=== PATIENT | male | born 2000 | race Caucasian/White ===

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

== ENCOUNTER 2022-03-23 09:14 | Emergency (ER) | payer OTHER, SELFPAY ==
[2022-03-23 09:26] VITALS: BP 130/86; PULSE 75; RESP 16; TEMP 36.8; O2SAT 100
--- NOTE | 2022-03-23 09:31 | ED.URI ---
HPI - URI/Sore Throat General Chief Complaint: Upper Respiratory Infection Stated Complaint: Sore Throat Time Seen by Provider: 03/23/22 09:31 History of Present Illness HPI Narrative: 22-year-old male presented for complaint of sore throat, onset last night into this morning. He states his mother noticed white patches in his throat. He endorses mild sinus congestion and drainage. Denies cough, shortness of breath, wheezing, nausea, vomiting, diarrhea, fevers or chills. He has not taken anything for symptoms. He denies sick contacts. Related Data Home Medications Medication Instructions Recorded Confirmed No Home Medications 01/01/21 03/23/22 Allergies Allergy/AdvReac Type Severity Reaction Status Date / Time amoxicillin AdvReac Mild Hives Verified 03/23/22 09:22 azithromycin AdvReac Mild Hives Verified 03/23/22 09:22 Review of Systems Review of Systems: CONSTITUTIONAL: Denies body aches, fever, chills, or sweats. EYES: Denies visual changes, redness, or discharge. ENT: Denies otalgia. CARDIOVASCULAR: Denies chest pain, palpitations, or edema. RESPIRATORY: Denies dyspnea. GASTROINTESTINAL: Denies abdominal pain, nausea, vomiting, or diarrhea. SKIN: Denies rash, itching, or wounds. MUSCULOSKELETAL: Denies back pain, joint pain, or myalgia. NEUROLOGIC: Denies headache PMFSH Social History Social History Smoking status: Never smoker Alcohol intake: never Substance use: never Exam Narrative: GENERAL: well-appearing EYES: conjunctivae clear ENT: Mucous membranes moist. TMs pearly humphreys with normal light reflex bilaterally; no tragal tenderness. Oropharynx erythematous without lesions. Tonsils enlarged 1+ without exudate. No drooling, no hoarseness, no trismus, uvula midline. No tripod positioning, hot potato voice, or soft palate swelling. NECK: Supple. No lymphadenopathy CHEST: Clear to auscultation, breath sounds equal. HEART: Regular rate and rhythm. No murmur heard. SKIN: Warm, dry, no rash. NEURO: Alert and oriented x3. Course Course Emergency Course: Patient is aware of diagnosis, understands and agrees to treatment plan. Anticipatory guidance given. Patient agrees to follow-up as directed and is aware of reasons to seek care at the emergency department. Portions of this record may have been created with voice recognition software Level of Care: Express Care Visit Vital Signs Vital signs: Vital Signs Temperature 98.3 F 03/23/22 09:26 Pulse Rate 75 03/23/22 09:26 Respiratory Rate 16 03/23/22 09:26 Blood Pressure 130/86 03/23/22 09:26 Pulse Oximetry 100 03/23/22 09:26 Oxygen Delivery Room Air 03/23/22 09:26 Temperature 98.3 F 03/23/22 09:26 Pulse Rate 75 03/23/22 09:26 Respiratory Rate 16 03/23/22 09:26 Blood Pressure 130/86 03/23/22 09:26 Pulse Oximetry 100 03/23/22 09:26 Oxygen Delivery Room Air 03/23/22 09:26 MDM - URI/Sore Throat MDM Narrative Medical decision making narrative: strep result reviewed with pt. Advise supportive treatments. Patient is appropriate for outpatient treatment and follow-up. Differential Diagnosis Differential diagnosis: Likely upper respiratory infection, viral infection and pharyngitis Lab Data Labs: Strep Screen Presumptive Negative *(Reference Range: Negative)* Discharge Plan Discharge Clinical Impression: Pharyngitis Patient Disposition: Home, Self-Care Condition: Stable Instructions: Antibiotic Form Additional Instructions: Rapid strep swab was negative today You will be notified in a few days if the culture comes back positive for strep, and appropriate antibiotics will be called in at that time. if symptoms are due to a viral illness, it is not treated with antibiotics. Viral symptoms can be present for up to 10-14 days. Recommend Flonase spray
== END 2022-03-23 09:50 | disposition home or self-care (01) ==
PROVIDERS: Emergency Provider Nurse Practitioner Family
DX: J02.9 Acute pharyngitis, unspecified (principal)
CPT/HCPCS: 87081; 87880; 99213; G0463

== ENCOUNTER 2024-04-05 14:10 | Emergency (ER) | payer BC, SELFPAY ==
[2024-04-05 14:21] VITALS: BP 131/82; PULSE 114; RESP 18; TEMP 37.3; O2SAT 100
--- NOTE | 2024-04-05 14:26 | ED_ITS ---
HPI - Back Pain/Injury General Chief Complaint: Back Pain/Injury Stated Complaint: lower back pain Time Seen by Provider: 04/05/24 14:26 Source: patient Mode of arrival: ambulatory Limitations: no limitations History of Present Illness HPI Narrative: 24 yo M presents with c/o L low back pain. Started 3 days ago after stepping off later at work. tweaked it . Took ibuprofen, ice and heat and stretching. Went into work today feeling 100 percent . back pain was better. Lifted garage door panel and began having L lower back pain again. Ambulatory with steady gait. No radiation of pain into buttock or LEs. No numbness or weakness. No loss of bowel or bladder. all systems reviewed and negative except as noted above. Related Data Allergies Allergy/AdvReac Type Severity Reaction Status Date / Time amoxicillin Allergy Mild Hives Verified 04/05/24 14:21 azithromycin Allergy Mild Hives Verified 04/05/24 14:21 Review of Systems Review of Systems: CONSTITUTIONAL: Denies fever, chills, or sweats. EYES: Denies visual changes, redness, or discharge. ENT: Denies rhinorrhea, congestion, sore throat, or otalgia. CARDIOVASCULAR: Denies chest pain, palpitations, or edema. RESPIRATORY: Denies cough or dyspnea. GASTROINTESTINAL: Denies abdominal pain, nausea, vomiting, or diarrhea. GENITOURINARY: Denies dysuria or hematuria. SKIN: Denies rash or itching. MUSCULOSKELETAL: Reports left lower back pain. Denies joint pain, or myalgia. NEUROLOGIC: Denies headache, numbness, or weakness. PSYCHIATRIC: Denies anxiety or depression. All other systems reviewed are negative, except as documented in HPI. [facility] Past Medical History Medical History (Updated 04/05/24 @ 14:35 by Reshma Marie NP) History of asthma As a child. Surgical History Surgical History (Updated 11/29/23 @ 10:32 by Derrek Kong MD) History of oral surgery 2013 Family History Family History (Updated 11/29/23 @ 10:37 by Derrek Kong MD) Father Alcohol abuse Mother No problems noted. 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 There is no relevant family history pertinent to the presenting complaint. Exam Narrative: GENERAL: This is a well-nourished, well-developed patient, in no apparent distress. HEAD: normocephalic, atraumatic. EYES: PERRL. Sclera clear/white. Vision is grossly intact. EARS: External ears normal NOSE: External nose normal NECK: Neck supple, non-tender without lymphadenopathy, masses or thyromegaly. CARDIOVASCULAR: Regular rate and rhythm without murmurs, gallops, or rubs. RESPIRATORY: Clear to auscultation. Breath sounds equal bilaterally. No wheezes, rales, or rhonchi. SKIN: warm, Dry, intact with no suspicious lesions or rash, good texture and turgor. NEURO: awake, alert, and oriented to person, place and time. There were no obvious focal neurologic abnormalities. EXTREMITIES: No joint tenderness, effusion, or edema noted. No calf tenderness. Negative Homans sign bilaterally. BACK: no midline tenderness. muscular tenderness and spasm to left lower back. Normal range of motion. Bilateral lower extremity strength 5/5. Negative straight leg raise. Course Course Level of Care: Express Care Visit Vital Signs Vital signs: Vital Signs Temperature 37.3 C 04/05/24 14:21 Pulse Rate 114 H 04/05/24 14:21 Respiratory Rate 18 04/05/24 14:21 Blood Pressure 131/82 04/05/24 14:21 Pulse Oximetry 100 04/05/24 14:21 Oxygen Delivery Room Air 04/05/24 14:21 Temperature 37.3 C 04/05/24 14:21 Pulse Rate 114 H 04/05/24 14:21 Respiratory Rate 18 04/05/24 14:21 Blood Pressure 131/82 04/05/24 14:21 Pulse Oximetry 100 04/05/24 14:21 Oxygen Delivery Room Air 04/05/24 14:21 Reviewed MDM - Back Pain/Injury MDM Narrative Medical decision making narrative: will treat low back strain with ibuprofen, prednisone and Robaxin. Recommend ice, heat, stretching. Recommend follow-up with primary care physician if pain not improving. No neuro deficits at time of discharge. Patient is aware of diagnosis, understands and agrees to treatment plan. Anticipatory guidance given. Patient agrees to follow-up as directed and is aware of reasons to seek care at the emergency department. Portions of this record may have been created with voice recognition software Discharge Plan Discharge Clinical Impression: Strain of muscle, fascia and tendon of lower back, initial encounter Patient Disposition: Home, Self-Care Condition: Stable Instructions: Low Back Strain (ED), Acute Low Back Pain (ED) Additional Instructions: Take medications as prescribed. Do not drive while taking methocarbamol. This medication is a muscle relaxant and may make you drowsy. Alternate between ice and heat. Avoid activities that increase pain to her back. Follow-up with your primary care physician if low back pain is not improving. If you have severe pain, loss of bowel or bladder, weakness to lower extremities go to the ER. Patient Language: Belarusian Prescriptions: New prednisone 20 mg tablet See Rx Instructions .ROUTE .COMPLEX Qty: 12 0RF Rx Instructions: Take 3 tablets today, then 2 tablets daily for 3 days then 1 tablet daily for 3 days. methocarbamol 750 mg tablet 750 mg PO Q8H PRN (Reason: muscle pain/spasm) Qty: 30 0RF ibuprofen 600 mg tablet 600 mg PO Q6H PRN (Reason: pain) Qty: 30 0RF Follow-up/Referrals: Derrek Kong MD [Primary Care Provider] - Stand Alone Forms: Work/School Release IP Time of Disposition: 14:36
--- OUTSIDE RECORDS SUMMARY | 2024-04-06 05:37 | XMS_ITS | Clinical Summary ---
Author Organization [facility] Address [address] [place] [address]. [place] [address] [place] [address] Care Team Providers Care Physical Therapist Assistant Name Role Phone Farrukh Faust Primary Care Provider [phone] Social History Tobacco Use Types Packs/Day Years Used Date Smoking Tobacco: Never Assessed Sex and Gender Information Value Date Recorded Sex Assigned at Not on file Legal Sex Male 7:12 PM CDT Gender Identity Not on file Sexual Orientation Not on file Plan of Treatment Health Maintenance Due Date Last Done Comments Annual Physical 2005 HPV Vaccines (1 - Male 3-dos e series) 2017 Hepatitis C 01/04/2020 DTaP, Tdap and Td Vaccines ( 1 - Tdap) 2021 Hepatitis B Vaccines (1 of 3 - 19+ 3-dose series) 2021 COVID-19 Vaccine (1 - 2023-2 5 season) 2023 Influenza Adult (#1) 2023 Meningococcal Vaccine Aged Out No mark ayaz eligible based on patient's age to complete this topic Pneumococcal Vaccine: Pediat rics (0 to 5 Years) and At-Risk Patients (6 to 64 Years) Aged Out No longer eligible b ased on patient's age to complete this topic RSV Immunizations Under 20 Months Aged Out No longer eligible based on patient's age to complete this topic Care Teams Physical Therapist Assistant Relationship Specialty Start Date End Date Farrukh Faust PA [address] [place] [id number] PCP - General 01/01/16
== END 2024-04-05 14:40 | disposition home or self-care (01) ==
PROVIDERS: Emergency Provider Nurse Practitioner Family; PCP Family Medicine
DX: S39.012A Strain of muscle, fascia and tendon of lower back, initial encounter (principal); X50.0XXA Overexertion from strenuous movement or load, initial encounter; Y99.0 Civilian activity done for income or pay; F17.290 Nicotine dependence, other tobacco product, uncomplicated; F12.90 Cannabis use, unspecified, uncomplicated
CPT/HCPCS: 99213; G0463

== ENCOUNTER 2024-10-20 17:00 | Emergency (ER) | payer BC, SELFPAY ==
--- OUTSIDE RECORDS SUMMARY | 2024-10-20 17:03 | XMS_ITS | Clinical Summary ---
Author Organization [facility] Address [address] [place] [id number] Care Team Providers Care Migratory Game Bird Biologist Name Role Phone Farrukh Faust Primary Care Provider [phone] Social History Tobacco Use Types Packs/Day Years [...] (1 - Male 3-dos e series) 2017 Meningococcal B Vaccine (1 o f 2 - Standard) 2018 Hepatitis C 01/04/2020 DTaP, Tdap and Td Vaccines ( 1 - Tdap) 2021 Hepatitis B Vaccines (1 of 3 - 19+ 3-dose series) 2021 COVID-19 Vaccine (1 - 2023-2 5 season) 2023 Meningococcal Vaccine Aged Out No mark ayaz eligible based on patient's age to complete this topic Pneumococcal Vaccine: Pediat rics (0 to 5 Years) and At-Risk Patients (6 to 49 Years) Aged Out No longer eligible b ased on patient's age to complete this topic RSV Immunizations Under 20 Months Aged Out No longer eligible based on patient's age to complete this topic Care Teams Migratory Game Bird Biologist Relationship Specialty Start Date End Date Farrukh Faust PA [address] [place] [id number] PCP - General 01/01/16
[2024-10-20 17:09] VITALS: BP 134/71; PULSE 85; RESP 18; TEMP 36.1; O2SAT 100
--- NOTE | 2024-10-20 17:20 | ED_ITS ---
HPI - Skin/Abscess/Foreign Bdy General Chief complaint: Skin/Abscess/Foreign Body Stated complaint: Cellulitis Source: patient Mode of arrival: ambulatory Limitations: no limitations History of Present Illness HPI narrative: 24 y/o male presented for c/o increasing redness surrounding an abscess to LLQ. Pt was seen at another 2 days ago for abscess formation, onset 6 days ago. he was prescribed Bactrim, but no I&D performed. States yesterday the abscess broke open, drained a large amount of blood and pus. Endorses the pain is much better now, but the redness is spreading up the abdomen. Denies n/v/d/f/c. Had cleansed the site with hydrogen peroxide and antiseptic wipes. Related Data Allergies Allergy/AdvReac Type Severity Reaction Status Date / Time amoxicillin Allergy Mild Hives Verified 10/20/24 17:02 azithromycin Allergy Mild Hives Verified 10/20/24 17:02 Review of Systems 2 Review of Systems: CONSTITUTIONAL: Denies body aches, fever, chills, or sweats. EYES: Denies visual changes, redness, or discharge. ENT: Denies rhinorrhea, congestion CARDIOVASCULAR: Denies chest pain, palpitations, or edema. RESPIRATORY: Denies cough or dyspnea. GASTROINTESTINAL: Denies abdominal pain, nausea, vomiting, or diarrhea. SKIN: reports abscess and redness MUSCULOSKELETAL: Denies back pain, joint pain, or myalgia. NEUROLOGIC: Denies headache, numbness, tingling, or weakness. [facility] Past Medical History Medical History (Updated 10/20/24 @ 17:23 by Paris Bang APRN) History of asthma As a child. Surgical History Surgical History (Updated 11/29/23 @ 10:32 by Derrek Kong MD) History of oral surgery 2013 Family History Family History (Updated 11/29/23 @ 10:37 by Derrek Kong MD) Father Alcohol abuse Mother No problems noted. 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 Please see nursing chart for further information. There is no relevant family history pertinent to the presenting complaint Exam 2 Narrative: GENERAL: Well-appearing ENT: Mucous membranes moist. Oropharynx without edema, erythema or lesions. CHEST: Clear to auscultation. HEART: Regular rate and rhythm. SKIN: Warm, dry. Left lower abdomen abscess approx 3cm diameter at hairline level with bloody purulent drainage, tender, no fluctuance or induration. Light erythema extends up the LLQ, nontender. NEURO: Alert and oriented x3. GI: Abdomen image: 1. area of abscess 2. surrounding light erythema Course Course Emergency Course: Patient is aware of diagnosis, understands and agrees to treatment plan. Anticipatory guidance given. Patient agrees to follow-up as directed and is aware of reasons to seek care at the emergency department. Portions of this record may have been created with voice recognition software Level of Care: Express Care Visit Vital Signs Vital signs: Vital Signs Temperature 97.0 F L 10/20/24 17:09 Pulse Rate 85 10/20/24 17:09 Respiratory Rate 18 10/20/24 17:09 Blood Pressure 134/71 10/20/24 17:09 Pulse Oximetry 100 10/20/24 17:09 Oxygen Delivery Room Air 10/20/24 17:09 Temperature 97.0 F L 10/20/24 17:09 Pulse Rate 85 10/20/24 17:09 Respiratory Rate 18 10/20/24 17:09 Blood Pressure 134/71 10/20/24 17:09 Pulse Oximetry 100 10/20/24 17:09 Oxygen Delivery Room Air 10/20/24 17:09 Reviewed MDM - Skin/Abscess/Foreign Bdy MDM Narrative Medical decision making narrative: Discussed physical exam findings; abscess to left lower abdomen with mild cellulitis extending up the lower quadrant. The area is marked with pen at this time. Shared decision making, pt will start cephalexin and continue the previously prescribed Bactrim. If no improvement in 24 hours he will present to ER. Advised supportive measures and signs/symptoms to go to the ER. Pt is appropriate for outpt treatment and f/u. Differential Diagnosis Differential diagnosis: Likely abscess of skin or subcutaneous tissue, viral exanthem, dermatophytosis, urticaria, herpes zoster, cellulitis, eczema, insect bites, impetigo and contact dermatitis Discharge Plan Discharge Clinical Impression: Cellulitis Patient Disposition: Home Condition: Stable Instructions: Antibiotic Form, Cellulitis (ED), Abscess (ED) Additional Instructions: Cleanse the abscess with warm soapy water and keep it dry. Warm compresses at least 4 times a day to the site to help expel any additional drainage. Keep your wound covered while draining Continue to Take antibiotic as directed previously. Start the new antibiotic today. Tylenol and ibuprofen every 8 hours for pain as needed Follow up with your primary care physician in 2-3 days for a wound check. Go to the Emergency Department immediately if you develop any of the following symptoms: Fevers, Increased redness, pain, or swelling around where your abscess was, etc Patient Language: Faroese Prescriptions: New cephalexin 500 mg capsule 500 mg PO Q6H 7 Days Qty: 28 0RF Follow-up/Referrals: Derrek Kong MD [Primary Care Provider] - Time of Disposition: 17:23
== END 2024-10-20 17:25 | disposition home or self-care (01) ==
PROVIDERS: Emergency Provider Nurse Practitioner Family; PCP Family Medicine
DX: L03.311 Cellulitis of abdominal wall (principal); F17.290 Nicotine dependence, other tobacco product, uncomplicated; F12.90 Cannabis use, unspecified, uncomplicated
CPT/HCPCS: 99213; G0463

== ENCOUNTER 2024-11-20 17:28 | Emergency (ER) | payer BC, SELFPAY ==
--- OUTSIDE RECORDS SUMMARY | 2024-11-20 17:30 | XMS_ITS | Clinical Summary ---
Author Organization [facility] Address [address] [place] [id number] Care Team Providers Care Field Advisor Name Role Phone Farrukh Faust Primary Care Provider [phone] Social History Tobacco Use Types Packs/Day Years [...] COVID-19 Vaccine (1 - 2023-2 5 season) 2024 Meningococcal Vaccine Aged Out No mark ayaz [...] age to complete this topic Care Teams Field Advisor Relationship Specialty Start Date End Date Farrukh Faust PA [address] [place] [id number] PCP - General 01/01/16
--- NOTE | 2024-11-20 17:38 | ED_ITS ---
HPI - URI/Sore Throat General Chief Complaint: Upper Respiratory Infection Stated Complaint: Sore throat Time Seen by Provider: 11/20/24 17:39 Source: patient, RN notes reviewed and old records reviewed Mode of arrival: ambulatory Limitations: no limitations History of Present Illness HPI Narrative: 24-year-old male presents to Express Care with complaint of sore throat, has felt flushed with fatigue, has had nasal congestion and drainage since Tuesday with known fevers. Patient reports he has not had a cough has not experienced any body aches no complaints of nausea vomiting or diarrhea. Patient reports he has been taking ibuprofen, Benadryl, and Thera Flu for his symptoms. Patient denies any difficulty with his breathing reports no cough, states painful swallowing no trismus noted MD elicited complaint: cough, sore throat, rhinorrhea and nasal congestion Onset (ago): day(s) (Take 3 of symptoms) Severity: moderate Pain scale (0-10): 6 Description of mucous: clear Able to tolerate fluids by mouth: Yes Exacerbating factors: swallowing Treatments prior to arrival: ibuprofen and other (Benadryl and Thera Flu) Related Data Allergies Allergy/AdvReac Type Severity Reaction Status Date / Time amoxicillin Allergy Mild Hives Verified 11/20/24 17:30 azithromycin Allergy Mild Hives Verified 11/20/24 17:30 Review of Systems Review of Systems: CONSTITUTIONAL:reports malaise, chills, sweats, no recorded fever. EYES: Denies visual changes, redness, or discharge. ENT: Reports rhinorrhea, congestion,no sinus pain, no otalgia and positive sore throat. CARDIOVASCULAR: Denies chest pain, palpitations, or edema. RESPIRATORY: Reports no acute cough.? Denies dyspnea. GASTROINTESTINAL: Denies abdominal pain, nausea, vomiting, diarrhea SKIN: Denies rash or itching. MUSCULOSKELETAL: Denies myalgia. NEUROLOGIC: Denies headache. All systems reviewed & are unremarkable except as noted in HPI and below PMFSH Past Medical History Medical History IBS (irritable bowel syndrome) History of strep sore throat History of asthma As a child. Surgical History Surgical History History of oral surgery 2014 Family History Family History Father Alcohol abuse Mother No problems noted. 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 There is no relevant family history pertinent to the presenting complaint Exam Narrative: GENERAL: Well-appearing, well-nourished, and in no acute distress. HEAD: Normocephalic EYES: PERRLA, conjunctivae clear ENT: Nares clear, turbinates edematous and erythematous, clear discharge. Mucous membranes moist. TM pearly humphreys with dull light reflex bilaterally; no tragal tenderness. Oropharynx erythematous without lesions. Tonsils red enlarged and with exudate, no drooling, no hoarseness, no trismus, uvula midline. Some postnasal drainage NECK: Supple. lymphadenopathy CHEST: Clear to auscultation, breath sounds equal. No wheezing, rhonchi, rales, or stridor. No respiratory distress, speaks in full sentences. No acute cough SaO2 99% on room air HEART: Regular rate and rhythm. No murmur heard. SKIN: Warm, dry, no rash. NEURO: Alert and oriented x3. PSYCH: Normal mood and affect Course Course Emergency Course: Patient is aware of diagnosis, understands and agrees to treatment plan.? Anticipatory guidance given.? Patient agrees to follow-up as directed and is aware of reasons to seek care at the emergency department. Portions of this record may have been created with voice recognition software Level of Care: Express Care Visit Vital Signs Vital signs: Reviewed MDM - URI/Sore Throat MDM Narrative Medical decision making narrative: Differential diagnosis considered: Mauro virus, strep pharyngitis, allergic rhinitis, upper respiratory tract infection, sinusitis, rhinosinusitis, nasopharyngitis. viral pharyngitis, otitis media, otitis externa, pneumonia, bronchitis, viral cough syndrome, viral syndrome, and influenza.? Exam findings show no acute concerns or changes; patient is non-toxic appearing and is in no distress.? Patient is appropriate for outpatient treatment and follow-up. Differential Diagnosis Differential diagnosis: Likely upper respiratory infection, pharyngitis and other (strep pharyngitis) Medical Records Attestation: I reviewed the patient's medical records. Lab Data Attestation: I reviewed the patient's lab results. Lab results narrative: strep screen positive Critical Care Time Critical Care Time Critical Care Time: No Discharge Plan Discharge Clinical Impression: Strep pharyngitis Patient Disposition: Home Condition: Stable Instructions: Antibiotic Form, Strep Throat (ED) Additional Instructions: You tested positive for Group A strep . Take the entire course of antibiotics. Throw away your current toothbrush and begin using a new toothbrush in 48 hours in order to prevent re-infection. Sanitize all reusable water bottles . Do not share items with others. Salt water gargles may alleviate some of the throat discomfort. You can take Tylenol or ibuprofen per the package instructions for pain/fever. Peridex mouth wash use as directed If your symptoms persist, change or worsen significantly before you can contact your personal physician then please, without delay, go to the emergency department for further evaluation. Follow-up with PCP in 7-10 days or sooner if needed Patient Language: Spanish Prescriptions: New cephalexin 500 mg capsule 500 mg PO Q8H 10 Days Qty: 30 0RF Rx Instructions: please take all doses of oral antibiotic. Patient has taken this medication in past without reaction chlorhexidine gluconate [Peridex] 0.12 % mouthwash 15 ml mucous membrane BID Qty: 473 0RF Follow-up/Referrals: Derrek Kong MD [Primary Care Provider, Family Practice] Stand Alone Forms: Work/School Release IP Time of Disposition: 17:56 Quality Leyla Coma Scale Eyes: Open Verbal: Oriented and Alert Motor: Follows Commands Leyla Coma Total Score: 15
[2024-11-20 17:39] VITALS: BP 111/68; PULSE 112; RESP 18; TEMP 37.3; O2SAT 99
[2024-11-20 17:50] LABS: EDSTREPNEGPOS1 Positive (Negative)
== END 2024-11-20 18:00 | disposition home or self-care (01) ==
PROVIDERS: Emergency Provider Registered Nurse; PCP Family Medicine
DX: J02.0 Streptococcal pharyngitis (principal); F17.290 Nicotine dependence, other tobacco product, uncomplicated; F12.90 Cannabis use, unspecified, uncomplicated
CPT/HCPCS: 87880; 99213; G0463